=== PATIENT | male | born 1955 | race Caucasian/White ===

== ENCOUNTER 2023-04-12 14:52 | Inpatient (IN) ==
--- NOTE | 2023-04-12 18:08 | DR.CONMALE ---
HPI Time Seen Time Seen by Provider: 04/12/23 18:08 Complaint Chief Complaint Doctors Comments: Patient has been having abdl pain,abdl distention x 2-3 days.Patient states that he has a h/o constipation and has been taking: dulcolax,colace,magnesium citrate,fleets enema,and miralax w/o relief. Patient's states that he has been unable to eat today and has been unable to lie on the stretcher because of the discomfort caused by the constipation. Patient denies:fever,trauma,fall, hematemesis,hematochezia,urinary sxs,weakness. Self Treatment fo Chief Complaint: dulcolax x2, stool softener x2, miralax, mag citrate, fleets enema all taken today w/o success. Pt already taking miralax daily COVID-19 Coronavirus risk:travel/contact w/high risk person: No Has patient experienced Coronavirus symptoms: No Timing Onset of Chief Complaint: 04/10/23 PMH PMH Past Medical History: Yes Past Medical History: Anxiety, Dyslipidemia, GERD, Hypertension and MD Past Surgical History: Yes Surgical History: Angioplasty/Stents and CABG/Valve Surgery Past Surgical History Comment: triple bypass Family History History of Family Medical Conditions: Yes Social History Does any household member use tobacco: No Alcohol Use: None Do you use any recreational Drugs:: No Lives With: Spouse Lives Where: Home Travel Risk Coronavirus risk:travel/contact w/high risk person: No Has patient experienced Coronavirus symptoms: No Infectious screening Have you traveled outside the country in the last 6 months?: No Isolation: Standard ROS Review of Systems Constitutional: No Symptoms Reported Eyes: No Symptoms Reported ENTM: No Symptoms Reported Respiratoy: No Symptoms Reported Cardiovascular: No Symptoms Reported Gastrointestinal/Abdominal: Abdominal Pain (generalized), Constipation and Food Intolerance Genitourinary: No Symptoms Reported Neurological: No Symptoms Reported Musculoskeletal: No Symptoms Reported Integumentary: No Symptoms Reported Hematologic/Lymphatic: No Symptoms Reported Endocrine: No Symptoms Reported Psychiatric: No Symptoms Reported All Other Systems: Reviewed and Negative PE Vital Signs Vital Signs: Temp Pulse Resp BP Pulse Ox O2 Del Method 04/12/23 15:05 98.0 F 97 H 18 110/72 96 Room Air General Limitations: No Limitations General Appearance: Alert and In No Apparent Distress Head Head Exam: Normal Inspection Eyes Eye exam: Normal Appearance ENT ENT Exam: Normal Exam Neck Neck Exam: Normal Inspection Chest Chest Inspection: Normal Inspection Respiratory Respiratory Exam: Normal Lung Sounds Bilat Respiratory Exam: Bilateral: Clear to Auscultation Cardiovascular Cardiovascular Exam: Regular Rate and Normal Rhythm Gastrointestinal Abdominal Exam: Soft, Distention, Rigidity and Hypoactive Bowel Sounds Abdominal Tenderness: Diffuse Rectal Rectal: Deferred Extremities Extremities Exam: Normal Inspection Back Back Exam: Normal Inspection MDM Differential Diagnosis Differential Diagnosis: Bowel obstruction, Cholangitis, Cholecystitis, Inflammatory BD, Ischemic Bowel and Mass COURSE Treatment Treatment: Patient was brought to a monitored and IV access was initiated.He received NS 1liter iv. His wbc is 12.7 with a left shift Neut 88.4 and T,bili is 2.0,AST and ALT is nml. Patient's Abd/pelvis Ct w/ contrast revealed, Rt hepatic lobe lesion and stone in cystic duct(gallbladder neck) nand gallbladder wall thickening suggestive of cholecystitis 22:[address] Fierro who has accepted patient to his service. Dr Fierro request: Give Invanz 1g iv,order MRCP,consult Dr Reyes. Patient has been stable in the ED and will be admitted inpatient. ROR Labs Reviewed Laboratory Results Reviewed?: Yes 04/15/23 04:35 04/15/23 04:35 Laboratory: WBC 12.7 X10^3/uL (3.6-10.0) H 04/12/23 18:43 RBC 6.00 X10^6/uL (4.7-6.0) 04/12/23 18:43 Hgb 16.9 g/dL (13.5-18.0) 04/12/23 18:43 Hct 50.4 % (42.0-54.0) 04/12/23 18:43 MCV 84.0 fL (80.0-100.0) 04/12/23 18:43 MCH 28.2 pg (27.0-34.0) 04/12/23 18:43 MCHC 33.6 g/dL (33.0-35.0) 04/12/23 18:43 RDW 14.3 % (11.6-16.5) 04/12/23 18:43 Plt Count 193 X10^3/uL (150.0-450.0) 04/12/23 18:43 MPV 8.2 fL (7.4-11.0) 04/12/23 18:43 Neut % (Auto) 88.4 % (42.0-75.0) H 04/12/23 18:43 Lymph % (Auto) 3.3 % (21.0-51.0) L 04/12/23 18:43 [place] % (Auto) 7.7 % (0.0-13.0) 04/12/23 18:43 Eos % (Auto) 0.2 % (0.9-2.9) L 04/12/23 18:43 Baso % (Auto) 0.4 % (0.2-1.0) 04/12/23 18:43 Neut # (Auto) 11.2 x10^3/uL (2.2-4.8) H 04/12/23 18:43 Lymph # (Auto) 0.4 X10^3/uL (1.3-2.9) L 04/12/23 18:43 [place] # (Auto) 1.0 x10^3/uL (0.3-0.8) H 04/12/23 18:43 Eos # (Auto) 0.0 x10^3/uL (0.0-0.2) 04/12/23 18:43 Baso # (Auto) 0.0 X10^3/uL (0.0-0.1) 04/12/23 18:43 Absolute Nucleated RBC 0.0 /100WBC 04/12/23 18:43 Sodium 138 mmol/L (136-145) 04/12/23 18:43 Corrected Sodium 139 mmol/L (136-145) 04/12/23 18:43 Potassium 4.4 mmol/L (3.5-5.1) 04/12/23 18:43 Chloride 101 mmol/L (98-107) 04/12/23 18:43 Carbon Dioxide 31.0 mmol/L (21-32) 04/12/23 18:43 BUN 13 mg/dL (7-18) 04/12/23 18:43 Creatinine 1.38 mg/dL (0.70-1.30) H 04/12/23 18:43 Est GFR (MDRD) Af Amer > 60 (>60) 04/12/23 18:43 Est GFR (MDRD) Non-Af 55 (>60) L 04/12/23 18:43 Glucose 157 mg/dL (65-99) H 04/12/23 18:43 Calcium 9.1 mg/dL (8.5-10.1) 04/12/23 18:43 Corrected Calcium TNP 04/12/23 18:43 Total Bilirubin 2.00 mg/dL (0.2-1.0) H 04/12/23 18:43 AST 16 Units/L (15-37) 04/12/23 18:43 ALT 18 Units/L (12-78) 04/12/23 18:43 Alkaline Phosphatase 117 Units/L (46-116) H 04/12/23 18:43 Total Protein 7.2 g/dL (6.4-8.2) 04/12/23 18:43 Albumin 3.5 g/dL (3.4-5.0) 04/12/23 18:43 Globulin 3.7 g/dL (2.5-4.5) 04/12/23 18:43 Albumin/Globulin Ratio 0.9 Ratio (1.1-2.1) L 04/12/23 18:43 Opioid Opioid Risk Tool Age (Leodan box if 16-45): No History of Preadolescent Sexual Abuse: No Total: 0 Total Score Risk Category: Low Risk Copyright: Jonatan ORTIZ predicting aberrant behaviors Discharge Plan Diagnosis Discharge Problem: Acute cholecystitis Discharge Plan Patient Disposition: ADMITTED INPATIENT Condition: Stable
[2023-04-12 18:51] LABS: BASOPHILS % (AUTO) 0.4 % (0.2-1.0); EOSINOPHILS % (AUTO) 0.2 % (0.9-2.9); HEMATOCRIT 50.4 % (42.0-54.0); HEMOGLOBIN 16.9 g/dL (13.5-18.0); LYMPHOCYTES # (AUTO) 0.4 X10^3/uL (1.3-2.9); LYMPHOCYTES % (AUTO) 3.3 % (21.0-51.0); MEAN CORPUSCULAR HEMOGLOBIN 28.2 pg (27.0-34.0); MEAN CORPUSCULAR HGB CONC 33.6 g/dL (33.0-35.0); MEAN PLATELET VOLUME 8.2 fL (7.4-11.0); MONOCYTES % (AUTO) 7.7 % (0.0-13.0); NEUTROPHILS # (AUTO) 11.2 x10^3/uL (2.2-4.8); NEUTROPHILS % (AUTO) 88.4 % (42.0-75.0); PLATELET COUNT 193 X10^3/uL (150.0-450.0); RED CELL DISTRIBUTION WIDTH 14.3 % (11.6-16.5); WHITE BLOOD COUNT 12.7 X10^3/uL (3.6-10.0)
[2023-04-12 19:04] LABS: ALANINE AMINOTRANSFERASE 18 Units/L (12-78); ALBUMIN 3.5 g/dL (3.4-5.0); ALKALINE PHOSPHATASE 117 Units/L (46-116); ASPARTATE AMINO TRANSFERASE 16 Units/L (15-37); BLOOD UREA NITROGEN 13 mg/dL (7-18); CALCIUM 9.1 mg/dL (8.5-10.1); CHLORIDE 101 mmol/L (98-107); COR NA(FOR HYPERGLY) 139 mmol/L (136-145); CREATININE 1.38 mg/dL (0.70-1.30); GLUCOSE 157 mg/dL (65-99); POTASSIUM 4.4 mmol/L (3.5-5.1); SODIUM 138 mmol/L (136-145); TOTAL PROTEIN 7.2 g/dL (6.4-8.2); eGFR NON BLACK RACES 55 (>60)
[2023-04-12] MEDS: OMNIPAQUE 350 mg/mL 100 mL BTL 100 ML ONE (19:20)
--- NOTE | 2023-04-12 20:09 | CT ---
EXAM:ABDCMEN/PELVIS WITH CONHISTORY:CONSTIPATION, RT LOWER ABDOMINAL PAIN ; HX- HTN, LA, AAA SX- STENTS, VALVE, TRIPLE BYPASSCOMPARISON:None.TECHNIQUE:Followin g the intravenous administration of iodinated contrast, spiral CT imaging was performed through the abdomen and pelvis and axial, coronal, and sagittal CT images were generated.FINDINGS:There is minimal basilar atelectasis without effusion. The heart size is normal. There is multivessel coronary atherosclerosis. There are low-density liver lesions compatible with benign cysts. There is a low-density lesion right hepatic lobe which is poorly defined and measures up to 2.7 cm diameter and is of uncertain etiology. Gallbladder wall is questionably thickened. There is a stone in the gallbladder neck or proximal cystic duct this is worrisome for acute cholecystitis. Pancreas is atrophic but otherwise unremarkable. The spleen is normal in size enhancement. The adrenal glands are normal. Kidneys are normal in size and enhancement. There are too small nonobstructing stones in the right kidney. There are simple renal cysts. The stomach is normal. Small bowel loops are grossly normal in appearance without abnormal dilation or wall thickening. The appendix is normal. The large bowel is normal. There is urinary bladder wall thickening. The prostate measures 3.9 cm in diameter. There is [id number] systemic atherosclerosis. There is no worrisome bone marrow lesion.IMPRESSION:1. There is a stone in the cystic duct or gallbladder neck and there appears to be gallbladder wall thickening suggesting acute cholecystitis.2. Nonobstructing right renal stones.3. Non-specific low-density lesion in the right hepatic lobe.4. Nonspecific urinary bladder wall thickening.THIS IS AN ELECTRONICALLY VERIFIED FINAL REPORT04/12/2023 8:06 PM - Electronically signed by Andrés Baugh MD
[2023-04-12] MEDS ORDERED: INVanz INJ 1 GRAM VIAL 1 G in NS 100 ML IV 100 ML IV SCH (23:00)
[2023-04-12] MEDS: INVanz INJ 1 GRAM VIAL 1 G in NS 100 ML IV 100 ML IV SCH (23:21)
[2023-04-12] MEDS: GOLYTELY or GAVILYTE or Equivalent PO SCH (23:22)
[2023-04-13 00:33] VITALS: BMI 26.7
[2023-04-13] MEDS: ZOFRAN INJ 4 MG VIAL IVP PRN (00:52)
[2023-04-13] MEDS: MORPHINE SULFATE INJ 2 MG INJ IVP PRN (00:53)
[2023-04-13] MEDS: NS 1,000 ML IV 1,000 ML IV SCH (00:54)
[2023-04-13 05:23] LABS: BASOPHILS % (AUTO) 0.2 % (0.2-1.0); HEMATOCRIT 48.1 % (42.0-54.0); HEMOGLOBIN 16.2 g/dL (13.5-18.0); LYMPHOCYTES # (AUTO) 0.5 X10^3/uL (1.3-2.9); LYMPHOCYTES % (AUTO) 2.7 % (21.0-51.0); MEAN CORPUSCULAR HEMOGLOBIN 28.6 pg (27.0-34.0); MEAN CORPUSCULAR HGB CONC 33.6 g/dL (33.0-35.0); MEAN PLATELET VOLUME 8.5 fL (7.4-11.0); MONOCYTES # (AUTO) 1.4 x10^3/uL (0.3-0.8); MONOCYTES % (AUTO) 7.9 % (0.0-13.0); NEUTROPHILS # (AUTO) 15.3 x10^3/uL (2.2-4.8); NEUTROPHILS % (AUTO) 89.2 % (42.0-75.0); PLATELET COUNT 215 X10^3/uL (150.0-450.0); RED BLOOD COUNT 5.66 X10^6/uL (4.7-6.0); RED CELL DISTRIBUTION WIDTH 14.3 % (11.6-16.5); WHITE BLOOD COUNT 17.2 X10^3/uL (3.6-10.0)
[2023-04-13 05:34] LABS: ALANINE AMINOTRANSFERASE 21 Units/L (12-78); ALBUMIN 3.3 g/dL (3.4-5.0); ALKALINE PHOSPHATASE 115 Units/L (46-116); ASPARTATE AMINO TRANSFERASE 24 Units/L (15-37); BLOOD UREA NITROGEN 15 mg/dL (7-18); CALCIUM 8.4 mg/dL (8.5-10.1); CARBON DIOXIDE 29.1 mmol/L (21-32); CHLORIDE 98 mmol/L (98-107); COR NA(FOR HYPERGLY) 141 mmol/L (136-145); CREATININE 1.39 mg/dL (0.70-1.30); GLUCOSE 148 mg/dL (65-99); LIPASE 15 Units/L (16-77); POTASSIUM 3.7 mmol/L (3.5-5.1); SODIUM 140 mmol/L (136-145); TOTAL PROTEIN 7.1 g/dL (6.4-8.2); eGFR NON BLACK RACES 54 (>60)
[2023-04-13] MEDS ORDERED: ZANAFLEX PO PRN (05:35)
[2023-04-13] MEDS ORDERED: PHENERGAN TAB 25 MG PO PRN (05:38)
--- NOTE | 2023-04-13 05:48 | EKG ---
Test Reason : htn protocol Blood Pressure : */* mmHG Vent. Rate : 91 BPM Atrial Rate : 91 BPM P-R Int : 176 ms QRS Dur : 72 ms QT Int : 350 ms P-R-T Axes : 22 -30 11 degrees QTc Int : 430 ms Normal sinus rhythm Possible Left atrial enlargement Left axis deviation Minimal voltage criteria for LVH, may be normal variant ( R in aVL ) Inferior infarct , age undetermined Anterolateral infarct , age undetermined Abnormal ECG No previous ECGs available Confirmed by Jaime Hernandez MD ([id number]) on 04/13/2023 7:35:08 AM Referred By: Confirmed By: Jaime Hernandez MD
[2023-04-13] MEDS: CATAPRES TAB 0.1 MG PO ONE (05:57)
[2023-04-13] MEDS: INVanz INJ 1 GRAM VIAL ONE (07:13)
[2023-04-13] MEDS: NS 100 ML IV 100 ML ONE ×2 (07:13→14:58)
[2023-04-13] MEDS ORDERED: CONSULT PHARMACY - POTASSIUM & MAGNESIUM XX SCH (08:00)
[2023-04-13] MEDS: COREG TAB 12.5 MG PO SCH (08:26)
[2023-04-13] MEDS: NORMODYNE TAB 200 MG PO SCH (08:27)
[2023-04-13] MEDS ORDERED: K-DUR TAB 20 MEQ PO ONE (09:00)
[2023-04-13] MEDS: ASPIRIN EC 81 MG PO SCH (09:26)
[2023-04-13] MEDS: VITAMIN D3 125 mcg (5,000 UNITS) PO SCH (09:26)
[2023-04-13] MEDS ORDERED: NS IRRIGATION* 1,000 ML ONE (14:28)
[2023-04-13] MEDS ORDERED: STERILE WATER IRRIGATION IR ONE (14:28)
[2023-04-13] MEDS: LR 1,000 ML IV 1,000 ML IV ONE (14:58)
[2023-04-13] MEDS: ANCEF VIAL 1 GRAM ONE (14:58)
--- NOTE | 2023-04-13 15:01 | MRI ---
EXAM: MRCP HISTORY: GALLSTONES BEST IMAGES POSSIBLE PT WAS IN A LOT OF PAIN AND DONE THE BEST HE COULD HOLDING BREATH ; COMPARISON: CT abdomen and pelvis 04/12/2023 TECHNIQUE: Multiplanar multisequence MRI of the abdomen was obtained without contrast. MRCP protocol was used. FINDINGS: The extrahepatic biliary tree is well seen. No evidence for choledocholithiasis. There is abnormal increased T2 signal around the gallbladder, along the inferior margin of the liver, and in the right upper abdomen near the duodenum. Findings suggest acute cholecystitis. I do not see any filling defects in the gallbladder. The stone which is clearly seen on CT in the ga llbladder neck or cystic duct, is not apparent on the MRI. There are cysts in the liver, left kidney, and right kidney. Small cyst in the pancreatic body measu res 9 mm. Recommend follow-up CT with contrast in 1 year. And there is also a mass in the right lobe of the liver which measures 3.2 cm correlating with the no nspecific low-density lesion seen on CT. This could be benign or malignant. There is no hydronephrosis. No bowel obstruction. Pancreas and adrenal glands are unremarkable. Sp olga is otherwise unremarkable. IMPRESSION: 1. No biliary dilatation or evidence for choledocholithiasis 2. Right upper quadrant edema, mostly around the gallbladder, suggesting acute cholecystitis 3. Small pancreatic cyst; recommend follow-up CT in 1 year 4. Indeterminate mass in the right lobe of the liver (3.2 cm) could be benign or malignant THIS IS AN ELECTRONICALLY VERIFIED FINAL REPORT 04/13/2023 2:58 PM - Electronically signed by Abdirashid Mckeon MD
[2023-04-13] MEDS: AMIDATE INJ 40 MG VIAL ONE (15:08)
[2023-04-13] MEDS: BRIDION ONE (15:08)
[2023-04-13] MEDS: ZOFRAN INJ 4 MG VIAL ONE (15:08)
[2023-04-13] MEDS: OFIRMEV IV 1000 MG VIAL 1,000 MG/100 ML VIAL IV ONE (15:08)
[2023-04-13] MEDS: ZEMURON 100 MG VIAL ONE (15:08)
[2023-04-13] MEDS: XYLOCAINE 2 % (PLAIN) ONE (15:08)
[2023-04-13] MEDS: FENTANYL VIAL INJ 100 mcg ONE ×2 (15:09→15:31)
[2023-04-13] MEDS: PEPCID 20 MG VIAL ONE (15:09)
[2023-04-13] MEDS ORDERED: SUPRANE ONE (15:09)
[2023-04-13] MEDS ORDERED: XYLOCAINE 2 % (PLAIN) ONE (15:09)
[2023-04-13] MEDS: SUPRANE ONE (15:22)
[2023-04-13] MEDS: BACTROBAN TOPICAL OINT ONE (15:28)
[2023-04-13] MEDS: VERSED ONE (15:28)
[2023-04-13] MEDS ORDERED: ZOFRAN INJ 4 MG VIAL IVP PRN (16:43)
[2023-04-13] MEDS ORDERED: BARHEMSYS INJ IVP PRN (16:43)
[2023-04-13] MEDS ORDERED: REGLAN INJ 10 MG VIAL IVP PRN (16:43)
[2023-04-13] MEDS ORDERED: DILAUDID INJ IVP PRN ×2 (16:43→16:55)
[2023-04-13] MEDS ORDERED: BENADRYL INJ 50 MG VIAL IVP PRN (16:43)
[2023-04-13 17:55] LABS: BILIRUBIN,URINE NEGATIVE (NEGATIVE); BLOOD/HEMOGLOBIN,URINE 4+ (NEGATIVE); GLUCOSE, URINE NEGATIVE (NEGATIVE); KETONES,URINE 3+ (NEGATIVE); LEUKOCYTE ESTERASE ,URINE NEGATIVE (NEGATIVE); NITRITES,URINE NEGATIVE (NEGATIVE); PROTEIN,URINE 2+ (NEGATIVE); UROBILINOGEN,URINE NORMAL (NORMAL)
[2023-04-13 17:59] LABS: APPEARANCE,URINE CLEAR (CLEAR); COLOR,URINE DARK YELLOW (YELLOW)
[2023-04-13 18:02] LABS: SQUAMOUS EPITHELIAL CELL,UR RARE /HPF (NEGATIVE)
[2023-04-13 18:03] LABS: BACTERIA,URINE TRACE /HPF (NEGATIVE); FINE GRANULAR CASTS,URINE FEW /LPF (NEGATIVE)
--- NOTE | 2023-04-13 18:35 | DR.H&P ---
H&P History & Physical for Day of: H&P Date: 04/12/23 Chief Complaint Chief Complaint: ABDOMINAL PAIN Allergies Allergies Allergy/AdvReac Type Severity Reaction Status Date / Time Penicillins Allergy Severe Verified 04/12/23 22:59 History of Present Illness History of Present Illness: This is a 67-year-old male who was an ER admission after having new onset abdominal pain few days prior. He denied having nausea and vomiting, but reported lack of bowel movement for several days. He had tried and failed on several enemas, dulcolax, magnesium citrate, miralax. ER work up revealed acute cholecystitis with a thickened gallbladder wall and impacted stone in the cystic duct. Past Medical History Past Medical History: Anxiety, Dyslipidemia, GERD, Hypertension and ID Past Surgical History Surgical History: Angioplasty/Stents and CABG/Valve Surgery Family History Family Medical History: Cancer Social History Does patient currently use any type of tobacco product: No Have you used tobacco products in the last 12 months: No Type of Tobacco Use: None Does any household member use tobacco: No Alcohol Use: None Drug Use: None Medications Home Medications: Home Medications Medication Instructions Recorded Confirmed Type alprazolam 0.5 mg tablet 0.5 mg PO TID 04/12/23 04/12/23 History aspirin 81 mg tablet,delayed 81 mg PO QDAY 04/12/23 04/12/23 History release atorvastatin 40 mg tablet 40 mg PO QHS 04/12/23 04/12/23 History carvedilol 12.5 mg tablet 12.5 mg PO BID 04/12/23 04/12/23 History cholecalciferol (vitamin D3) 125 125 mcg PO QDAY 04/12/23 04/12/23 History mcg (5,000 unit) tablet (Vitamin D3) hydrocodone 10 mg-acetaminophen 1 tab PO TID 04/12/23 04/12/23 History 325 mg tablet hydroxyzine pamoate 25 mg capsule 25 mg PO BID 04/12/23 04/12/23 History labetalol 200 mg tablet 200 mg PO DAILY 04/12/23 04/12/23 History promethazine 25 mg tablet 25 mg PO TID PRN 04/12/23 04/12/23 History tizanidine 2 mg tablet 2 mg PO BID PRN 04/12/23 04/12/23 History zolpidem 12.5 mg tablet,extended 12.5 mg PO QPM 04/12/23 04/12/23 History release,multiphase Labs 04/14/23 05:30 04/14/23 05:30 Labs: 04/13/23 16:15 Gallbladder Fluid Wound Gram Stain - Final Laboratory WBC 17.2 X10^3/uL (3.6-10.0) H 04/13/23 04:43 RBC 5.66 X10^6/uL (4.7-6.0) 04/13/23 04:43 Hgb 16.2 g/dL (13.5-18.0) 04/13/23 04:43 Hct 48.1 % (42.0-54.0) 04/13/23 04:43 MCV 85.0 fL (80.0-100.0) 04/13/23 04:43 MCH 28.6 pg (27.0-34.0) 04/13/23 04:43 MCHC 33.6 g/dL (33.0-35.0) 04/13/23 04:43 RDW 14.3 % (11.6-16.5) 04/13/23 04:43 Plt Count 215 X10^3/uL (150.0-450.0) 04/13/23 04:43 MPV 8.5 fL (7.4-11.0) 04/13/23 04:43 Neut % (Auto) 89.2 % (42.0-75.0) H 04/13/23 04:43 Lymph % (Auto) 2.7 % (21.0-51.0) L 04/13/23 04:43 [place] % (Auto) 7.9 % (0.0-13.0) 04/13/23 04:43 Eos % (Auto) 0.0 % (0.9-2.9) L 04/13/23 04:43 Baso % (Auto) 0.2 % (0.2-1.0) 04/13/23 04:43 Neut # (Auto) 15.3 x10^3/uL (2.2-4.8) H 04/13/23 04:43 Lymph # (Auto) 0.5 X10^3/uL (1.3-2.9) L 04/13/23 04:43 [place] # (Auto) 1.4 x10^3/uL (0.3-0.8) H 04/13/23 04:43 Eos # (Auto) 0.0 x10^3/uL (0.0-0.2) 04/13/23 04:43 Baso # (Auto) 0.0 X10^3/uL (0.0-0.1) 04/13/23 04:43 Absolute Nucleated RBC 0.1 /100WBC 04/13/23 04:43 Sodium 140 mmol/L (136-145) 04/13/23 04:43 Corrected Sodium 141 mmol/L (136-145) 04/13/23 04:43 Potassium 3.7 mmol/L (3.5-5.1) 04/13/23 04:43 Chloride 98 mmol/L (98-107) 04/13/23 04:43 Carbon Dioxide 29.1 mmol/L (21-32) 04/13/23 04:43 BUN 15 mg/dL (7-18) 04/13/23 04:43 Creatinine 1.39 mg/dL (0.70-1.30) H 04/13/23 04:43 Est GFR (MDRD) Af Amer > 60 (>60) 04/13/23 04:43 Est GFR (MDRD) Non-Af 54 (>60) L 04/13/23 04:43 Glucose 148 mg/dL (65-99) H 04/13/23 04:43 Calcium 8.4 mg/dL (8.5-10.1) L 04/13/23 04:43 Corrected Calcium 9.0 mg/dL (8.5-10.1) 04/13/23 04:43 Total Bilirubin 2.20 mg/dL (0.2-1.0) H 04/13/23 04:43 AST 24 Units/L (15-37) 04/13/23 04:43 ALT 21 Units/L (12-78) 04/13/23 04:43 Alkaline Phosphatase 115 Units/L (46-116) 04/13/23 04:43 Total Protein 7.1 g/dL (6.4-8.2) 04/13/23 04:43 Albumin 3.3 g/dL (3.4-5.0) L 04/13/23 04:43 Globulin 3.8 g/dL (2.5-4.5) 04/13/23 04:43 Albumin/Globulin Ratio 0.9 Ratio (1.1-2.1) L 04/13/23 04:43 Lipase 15 Units/L (16-77) L 04/13/23 04:43 Specimen Type Catherized urine 04/13/23 17:24 Urine Color Dark yellow (YELLOW) 04/13/23 17:24 Urine Appearance Clear (CLEAR) 04/13/23 17:24 Urine pH 5.0 (5.0 - 8.0) 04/13/23 17:24 Ur Specific [place] 1.030 (1.000-1.030) 04/13/23 17:24 Urine Protein 2+ (NEGATIVE) 04/13/23 17:24 Urine Glucose (UA) Negative (NEGATIVE) 04/13/23 17:24 Urine Ketones 3+ (NEGATIVE) 04/13/23 17:24 Urine Blood 4+ (NEGATIVE) 04/13/23 17:24 Urine Nitrite Negative (NEGATIVE) 04/13/23 17:24 Urine Bilirubin Negative (NEGATIVE) 04/13/23 17:24 Urine Urobilinogen Normal (NORMAL) 04/13/23 17:24 Ur Leukocyte Esterase Negative (NEGATIVE) 04/13/23 17:24 Urine RBC 3-5 /HPF (0-3) A 04/13/23 17:24 Urine WBC 0-2 /HPF (0-5) 04/13/23 17:24 Ur Squamous Epith Cells Rare /HPF (NEGATIVE) 04/13/23 17:24 Amorphous Sediment 1+ /HPF (NEGATIVE) 04/13/23 17:24 Urine Bacteria Trace /HPF (NEGATIVE) 04/13/23 17:24 Fine Granular Casts Few /LPF (NEGATIVE) 04/13/23 17:24 Urine Mucus Moderate /HPF (NEGATIVE) 04/13/23 17:24 Ur Culture Indicated? No/not indicated 04/13/23 17:24 Review of Systems Constitutional: Weakness Eyes: No Symptoms Reported ENT: No Symptoms Reported Respiratory: No Symptoms Reported Cardiovascular: No Symptoms Reported Gastrointestinal: Nausea, Vomiting and Abdominal Pain Genitourinary: No Symptoms Reported Musculoskeletal: Back Pain Skin: No Symptoms Reported Neurological: No Symptoms Reported Physical Exam Vital Signs: Vital Signs Temperature 98.2 F Pulse Rate [Left Apical] 96 Pulse Rate 88 Pulse Rate 89 Pulse Rate 89 Pulse Rate 92 Pulse Rate 89 Pulse Rate 93 Pulse Rate 93 Pulse Rate 93 Pulse Rate 90 Respiratory Rate 21 Respiratory Rate 20 Respiratory Rate 20 Respiratory Rate 21 Respiratory Rate 19 Respiratory Rate 20 Respiratory Rate 20 Respiratory Rate 18 Respiratory Rate 18 Respiratory Rate 18 Respiratory Rate 18 Blood Pressure [Left Arm] 147/79 Blood Pressure 137/65 Blood Pressure 134/62 Blood Pressure 137/63 Blood Pressure 134/58 Blood Pressure 139/66 Blood Pressure 151/71 Blood Pressure 140/73 Blood Pressure 152/92 O2 Sat by Pulse Oximetry 98 O2 Sat by Pulse Oximetry 98 O2 Sat by Pulse Oximetry 98 O2 Sat by Pulse Oximetry 97 O2 Sat by Pulse Oximetry 97 O2 Sat by Pulse Oximetry 97 O2 Sat by Pulse Oximetry 96 O2 Sat by Pulse Oximetry 95 O2 Sat by Pulse Oximetry 92 Oriented: Normal Eyes: Normal Ear: Normal Nose: Normal Throat: Normal Respiratory: Clear Throughout Cardiovascular: Normal : Normal Auscultation: Bowel Sounds: Normal Palpation: Normal Tenderness: Diffuse ( Full with diffuse tenderness. Slightly tympanic in the epigastrium. Bowel sounds were hypoactive. ) Skin: Normal Musculoskeletal: Normal Psychiatric: Normal Mood Description: Calm Affect: Normal Speech Pattern: Clear
[2023-04-13] MEDS: LIPITOR TAB 40 MG PO SCH (21:34)
[2023-04-13] MEDS: AMBIEN PO PRN (21:34)
[2023-04-13] MEDS: PROTONIX INJ 40 MG VIAL IVP SCH (21:37)
[2023-04-13] MEDS: D5 1/2 NS 1,000 ML 1,000 ML IV SCH (21:47)
[2023-04-13] MEDS: ZOSYN VIAL 3.375 GRAMS 3.375 G in NS 100 ML IV 100 ML IV SCH (23:10)
[2023-04-14] MEDS: VISTARIL PO PRN
[2023-04-14] MEDS: NORCO 10/325 TAB PO PRN (00:04)
[2023-04-14 06:24] LABS: BASOPHILS % (AUTO) 0.2 % (0.2-1.0); EOSINOPHILS % (AUTO) 0.2 % (0.9-2.9); HEMATOCRIT 41.1 % (42.0-54.0); HEMOGLOBIN 13.9 g/dL (13.5-18.0); LYMPHOCYTES # (AUTO) 0.7 X10^3/uL (1.3-2.9); LYMPHOCYTES % (AUTO) 5.7 % (21.0-51.0); MEAN CORPUSCULAR HEMOGLOBIN 28.8 pg (27.0-34.0); MEAN CORPUSCULAR HGB CONC 33.8 g/dL (33.0-35.0); MEAN CORPUSCULAR VOLUME 85.1 fL (80.0-100.0); MEAN PLATELET VOLUME 8.6 fL (7.4-11.0); MONOCYTES # (AUTO) 1.2 x10^3/uL (0.3-0.8); MONOCYTES % (AUTO) 9.8 % (0.0-13.0); NEUTROPHILS # (AUTO) 10.1 x10^3/uL (2.2-4.8); NEUTROPHILS % (AUTO) 84.1 % (42.0-75.0); PLATELET COUNT 165 X10^3/uL (150.0-450.0); RED BLOOD COUNT 4.83 X10^6/uL (4.7-6.0); RED CELL DISTRIBUTION WIDTH 14.1 % (11.6-16.5)
[2023-04-14 06:30] LABS: ALANINE AMINOTRANSFERASE 18 Units/L (12-78); ALBUMIN 2.2 g/dL (3.4-5.0); ALKALINE PHOSPHATASE 78 Units/L (46-116); ASPARTATE AMINO TRANSFERASE 25 Units/L (15-37); BLOOD UREA NITROGEN 21 mg/dL (7-18); CALCIUM 7.6 mg/dL (8.5-10.1); CHLORIDE 103 mmol/L (98-107); COR NA(FOR HYPERGLY) 140 mmol/L (136-145); CREATININE 1.42 mg/dL (0.70-1.30); GLUCOSE 146 mg/dL (65-99); MAGNESIUM 2.2 mg/dL (2.0-2.9); POTASSIUM 3.9 mmol/L (3.5-5.1); SODIUM 139 mmol/L (136-145); TOTAL PROTEIN 5.5 g/dL (6.4-8.2); eGFR NON BLACK RACES 53 (>60)
[2023-04-14] MEDS: ALPRAZOLAM ODT PO PRN (08:28)
--- NOTE | 2023-04-14 09:21 | RAD ---
EXAM: AP chest HISTORY: Preop gallbladder COMPARISON: None FINDINGS: Heart size is upper normal, accentuated by diaphragm elevation and low lung volumes. Minimal atelec tasis is noted at the level of the right diaphragm. There is no definite pneumonia or pleural fluid. IMPRESSION: Low volume lungs which may be related to abdominal distention. Minimal right basal atelectasis. THIS IS AN ELECTRONICALLY VERIFIED FINAL REPORT 04/14/2023 9:18 AM - Electronically signed by Aj Price MD
--- NOTE | 2023-04-14 11:07 | DR.PROGNOT ---
HOSPITAL PROGRESS NOTE Progress Note for Day of: Progress Note Date: 04/14/23 Chief Complaint Chief Complaint: Patient is status post diagnostic laparoscopy, cholecystostomy, lysis of adhesions and drainage.. Patient was found to have acute gangrenous cholecystitis with dense adhesions around the gallbladder and liver edges with distended transverse colon. Patient is doing fairly well today with moderate incisional pain, no nausea or vomiting. GERI drainage is draining dark bile. Good urine output. White count 12,000, hemoglobin 13.9, BUN 21, creatinine 1.4, total bilirubin 1.7, liver function test are normal. Patient is afebrile.. Past Medical Family Social History Allergies: Allergies Penicillins Allergy (Severe, Verified 04/12/23 22:59) Vital Signs Vital Signs: Vital Signs Temperature 98.0 F Temperature 99.3 F Pulse Rate [Left Apical] 81 Pulse Rate [Left Apical] 89 Respiratory Rate 18 Respiratory Rate 20 Respiratory Rate 18 Respiratory Rate 18 Respiratory Rate 18 Respiratory Rate 18 Blood Pressure [Left Arm] 143/69 Blood Pressure [Left Arm] 144/88 O2 Sat by Pulse Oximetry 93 O2 Sat by Pulse Oximetry 95 Physical Exam Oriented: Normal Eyes: Normal Nose: Normal Respiratory: Normal Cardiovascular: Normal GI:Auscultation: Decreased GI: Tenderness: Other (Mild to moderate diffuse tenderness in the right upper quadrant and epigastrium.) Mood Description: Calm and Appropriate Speech Pattern: Clear Laboratory and Diagnostics 04/14/23 05:30 04/14/23 05:30 Labs: 04/13/23 16:15 Gallbladder Fluid Wound Gram Stain - Final 04/13/23 16:15 Gallbladder Fluid Wound Culture - Preliminary Laboratory WBC 12.0 X10^3/uL (3.6-10.0) H 04/14/23 05:30 RBC 4.83 X10^6/uL (4.7-6.0) 04/14/23 05:30 Hgb 13.9 g/dL (13.5-18.0) D 04/14/23 05:30 Hct 41.1 % (42.0-54.0) L 04/14/23 05:30 MCV 85.1 fL (80.0-100.0) 04/14/23 05:30 MCH 28.8 pg (27.0-34.0) 04/14/23 05:30 MCHC 33.8 g/dL (33.0-35.0) 04/14/23 05:30 RDW 14.1 % (11.6-16.5) 04/14/23 05:30 Plt Count 165 X10^3/uL (150.0-450.0) 04/14/23 05:30 MPV 8.6 fL (7.4-11.0) 04/14/23 05:30 Neut % (Auto) 84.1 % (42.0-75.0) H 04/14/23 05:30 Lymph % (Auto) 5.7 % (21.0-51.0) L 04/14/23 05:30 [place] % (Auto) 9.8 % (0.0-13.0) 04/14/23 05:30 Eos % (Auto) 0.2 % (0.9-2.9) L 04/14/23 05:30 Baso % (Auto) 0.2 % (0.2-1.0) 04/14/23 05:30 Neut # (Auto) 10.1 x10^3/uL (2.2-4.8) H 04/14/23 05:30 Lymph # (Auto) 0.7 X10^3/uL (1.3-2.9) L 04/14/23 05:30 [place] # (Auto) 1.2 x10^3/uL (0.3-0.8) H 04/14/23 05:30 Eos # (Auto) 0.0 x10^3/uL (0.0-0.2) 04/14/23 05:30 Baso # (Auto) 0.0 X10^3/uL (0.0-0.1) 04/14/23 05:30 Absolute Nucleated RBC 0.0 /100WBC 04/14/23 05:30 Sodium 139 mmol/L (136-145) 04/14/23 05:30 Corrected Sodium 140 mmol/L (136-145) 04/14/23 05:30 Potassium 3.9 mmol/L (3.5-5.1) 04/14/23 05:30 Chloride 103 mmol/L (98-107) 04/14/23 05:30 Carbon Dioxide 28.0 mmol/L (21-32) 04/14/23 05:30 BUN 21 mg/dL (7-18) H 04/14/23 05:30 Creatinine 1.42 mg/dL (0.70-1.30) H 04/14/23 05:30 Est GFR (MDRD) Af Amer > 60 (>60) 04/14/23 05:30 Est GFR (MDRD) Non-Af 53 (>60) L 04/14/23 05:30 Glucose 146 mg/dL (65-99) H 04/14/23 05:30 Calcium 7.6 mg/dL (8.5-10.1) L 04/14/23 05:30 Corrected Calcium 9.0 mg/dL (8.5-10.1) 04/14/23 05:30 Magnesium 2.2 mg/dL (2.0-2.9) 04/14/23 05:30 Total Bilirubin 1.70 mg/dL (0.2-1.0) H 04/14/23 05:30 AST 25 Units/L (15-37) 04/14/23 05:30 ALT 18 Units/L (12-78) 04/14/23 05:30 Alkaline Phosphatase 78 Units/L (46-116) 04/14/23 05:30 Total Protein 5.5 g/dL (6.4-8.2) L 04/14/23 05:30 Albumin 2.2 g/dL (3.4-5.0) L 04/14/23 05:30 Globulin 3.3 g/dL (2.5-4.5) 04/14/23 05:30 Albumin/Globulin Ratio 0.7 Ratio (1.1-2.1) L 04/14/23 05:30 Lipase 15 Units/L (16-77) L 04/13/23 04:43 Specimen Type Catherized urine 04/13/23 17:24 Urine Color Dark yellow (YELLOW) 04/13/23 17:24 Urine Appearance Clear (CLEAR) 04/13/23 17:24 Urine pH 5.0 (5.0 - 8.0) 04/13/23 17:24 Ur Specific [place] 1.030 (1.000-1.030) 04/13/23 17:24 Urine Protein 2+ (NEGATIVE) 04/13/23 17:24 Urine Glucose (UA) Negative (NEGATIVE) 04/13/23 17:24 Urine Ketones 3+ (NEGATIVE) 04/13/23 17:24 Urine Blood 4+ (NEGATIVE) 04/13/23 17:24 Urine Nitrite Negative (NEGATIVE) 04/13/23 17:24 Urine Bilirubin Negative (NEGATIVE) 04/13/23 17:24 Urine Urobilinogen Normal (NORMAL) 04/13/23 17:24 Ur Leukocyte Esterase Negative (NEGATIVE) 04/13/23 17:24 Urine RBC 3-5 /HPF (0-3) A 04/13/23 17:24 Urine WBC 0-2 /HPF (0-5) 04/13/23 17:24 Ur Squamous Epith Cells Rare /HPF (NEGATIVE) 04/13/23 17:24 Amorphous Sediment 1+ /HPF (NEGATIVE) 04/13/23 17:24 Urine Bacteria Trace /HPF (NEGATIVE) 04/13/23 17:24 Fine Granular Casts Few /LPF (NEGATIVE) 04/13/23 17:24 Urine Mucus Moderate /HPF (NEGATIVE) 04/13/23 17:24 Ur Culture Indicated? No/not indicated 04/13/23 17:24 Assessment and Plan 1: Acute gangrenous calculus cholecystitis. S/p laparoscopy, lysis of adhesions, cholecystostomy and drainage. Same IV antibiotics. Will advance diet to soft low-fat diet. Out of bed. Same IV antibiotics.
--- NOTE | 2023-04-14 17:36 | PCM.PROG ---
Progress Note Progress Note for Day of Date of Exam: 04/13/23 Subjective Subjective: PT IS 67 WM, ER ADMISSION AFTER PRESENTING WITH CO ABDOMINAL PAIN AND N/V. PT HAD CT REVEALING ACUTE CHOLECYSTITIS. PT IS NPO FOR MRCP THIS AM. DR CHAUDHARI IS CONSULTING AND DISCUSSED LAP KAZ FOR LATER THIS MORNING. PT IS CURRENTLY ON IV INVANZ. WE OBTAINED A ROUTINE EKG AND CXR FOR PREOP DUE TO PT'S PMH OF CAD. PT DENIES ANY CHEST PAIN THIS AM OR SOB, BUT CO RIGHT SIDE ABDOMINAL PAIN. PT'S WBC 17.2, CREAT AT 1.39 ON AM LABS. Past Medical Family Social History Allergies: Allergies Penicillins Allergy (Severe, Verified 04/12/23 22:59) Review of Systems ROS: No change since H&P Vital Signs and I&O's Vital Signs: Vital Signs Temperature 97.5 F Temperature 97.9 F Pulse Rate [Left Apical] 75 Pulse Rate [Left Apical] 76 Respiratory Rate 20 Respiratory Rate 18 Respiratory Rate 18 Respiratory Rate 20 Blood Pressure [Left Arm] 148/66 Blood Pressure [Left Arm] 147/68 O2 Sat by Pulse Oximetry 95 O2 Sat by Pulse Oximetry 94 Intake and Output: Intake & Output 04/12/23 04/13/23 04/14/23 04/15/23 11:59 11:59 11:59 11:59 Intake Total 634 / 634 3000 / 3000 1686 / 1686 Output Total 2855 / 2855 860 / 860 Balance 634 / 634 145 / 145 826 / 826 Physical Exam Oriented: Normal Eyes: Normal Ear: Normal Nose: Normal Throat: Normal Respiratory: Normal Cardiovascular: Normal : Normal Auscultation: Bowel Sounds: Normal Tenderness: RUQ, RLQ and Epigastric Skin: Normal Musculoskeletal: Normal Psychiatric: Normal Mood Description: Calm Affect: Normal Speech Pattern: Clear Laboratory and Diagnostics 04/14/23 05:30 04/14/23 05:30 Labs: 04/13/23 16:15 Gallbladder Fluid Wound Gram Stain - Final 04/13/23 16:15 Gallbladder Fluid Wound Culture - Preliminary Laboratory WBC 12.0 X10^3/uL (3.6-10.0) H 04/14/23 05:30 RBC 4.83 X10^6/uL (4.7-6.0) 04/14/23 05:30 Hgb 13.9 g/dL (13.5-18.0) D 04/14/23 05:30 Hct 41.1 % (42.0-54.0) L 04/14/23 05:30 MCV 85.1 fL (80.0-100.0) 04/14/23 05:30 MCH 28.8 pg (27.0-34.0) 04/14/23 05:30 MCHC 33.8 g/dL (33.0-35.0) 04/14/23 05:30 RDW 14.1 % (11.6-16.5) 04/14/23 05:30 Plt Count 165 X10^3/uL (150.0-450.0) 04/14/23 05:30 MPV 8.6 fL (7.4-11.0) 04/14/23 05:30 Neut % (Auto) 84.1 % (42.0-75.0) H 04/14/23 05:30 Lymph % (Auto) 5.7 % (21.0-51.0) L 04/14/23 05:30 [place] % (Auto) 9.8 % (0.0-13.0) 04/14/23 05:30 Eos % (Auto) 0.2 % (0.9-2.9) L 04/14/23 05:30 Baso % (Auto) 0.2 % (0.2-1.0) 04/14/23 05:30 Neut # (Auto) 10.1 x10^3/uL (2.2-4.8) H 04/14/23 05:30 Lymph # (Auto) 0.7 X10^3/uL (1.3-2.9) L 04/14/23 05:30 [place] # (Auto) 1.2 x10^3/uL (0.3-0.8) H 04/14/23 05:30 Eos # (Auto) 0.0 x10^3/uL (0.0-0.2) 04/14/23 05:30 Baso # (Auto) 0.0 X10^3/uL (0.0-0.1) 04/14/23 05:30 Absolute Nucleated RBC 0.0 /100WBC 04/14/23 05:30 Sodium 139 mmol/L (136-145) 04/14/23 05:30 Corrected Sodium 140 mmol/L (136-145) 04/14/23 05:30 Potassium 3.9 mmol/L (3.5-5.1) 04/14/23 05:30 Chloride 103 mmol/L (98-107) 04/14/23 05:30 Carbon Dioxide 28.0 mmol/L (21-32) 04/14/23 05:30 BUN 21 mg/dL (7-18) H 04/14/23 05:30 Creatinine 1.42 mg/dL (0.70-1.30) H 04/14/23 05:30 Est GFR (MDRD) Af Amer > 60 (>60) 04/14/23 05:30 Est GFR (MDRD) Non-Af 53 (>60) L 04/14/23 05:30 Glucose 146 mg/dL (65-99) H 04/14/23 05:30 Calcium 7.6 mg/dL (8.5-10.1) L 04/14/23 05:30 Corrected Calcium 9.0 mg/dL (8.5-10.1) 04/14/23 05:30 Magnesium 2.2 mg/dL (2.0-2.9) 04/14/23 05:30 Total Bilirubin 1.70 mg/dL (0.2-1.0) H 04/14/23 05:30 AST 25 Units/L (15-37) 04/14/23 05:30 ALT 18 Units/L (12-78) 04/14/23 05:30 Alkaline Phosphatase 78 Units/L (46-116) 04/14/23 05:30 Total Protein 5.5 g/dL (6.4-8.2) L 04/14/23 05:30 Albumin 2.2 g/dL (3.4-5.0) L 04/14/23 05:30 Globulin 3.3 g/dL (2.5-4.5) 04/14/23 05:30 Albumin/Globulin Ratio 0.7 Ratio (1.1-2.1) L 04/14/23 05:30 Lipase 15 Units/L (16-77) L 04/13/23 04:43 Specimen Type Catherized urine 04/13/23 17:24 Urine Color Dark yellow (YELLOW) 04/13/23 17:24 Urine Appearance Clear (CLEAR) 04/13/23 17:24 Urine pH 5.0 (5.0 - 8.0) 04/13/23 17:24 Ur Specific [place] 1.030 (1.000-1.030) 04/13/23 17:24 Urine Protein 2+ (NEGATIVE) 04/13/23 17:24 Urine Glucose (UA) Negative (NEGATIVE) 04/13/23 17:24 Urine Ketones 3+ (NEGATIVE) 04/13/23 17:24 Urine Blood 4+ (NEGATIVE) 04/13/23 17:24 Urine Nitrite Negative (NEGATIVE) 04/13/23 17:24 Urine Bilirubin Negative (NEGATIVE) 04/13/23 17:24 Urine Urobilinogen Normal (NORMAL) 04/13/23 17:24 Ur Leukocyte Esterase Negative (NEGATIVE) 04/13/23 17:24 Urine RBC 3-5 /HPF (0-3) A 04/13/23 17:24 Urine WBC 0-2 /HPF (0-5) 04/13/23 17:24 Ur Squamous Epith Cells Rare /HPF (NEGATIVE) 04/13/23 17:24 Amorphous Sediment 1+ /HPF (NEGATIVE) 04/13/23 17:24 Urine Bacteria Trace /HPF (NEGATIVE) 04/13/23 17:24 Fine Granular Casts Few /LPF (NEGATIVE) 04/13/23 17:24 Urine Mucus Moderate /HPF (NEGATIVE) 04/13/23 17:24 Ur Culture Indicated? No/not indicated 04/13/23 17:24 Plan (1) Acute cholecystitis: Status: Acute Narrative Support Text: SURGICAL CONSULT. PT NPO FOR MRCP THIS AM CONTINUE IV ATBX, IV HYDRATION WITH STRICT I&OS CXR AND EKG OBTAINED FOR PREOP PRN PAIN CONTROL, REPEAT AM LABS (2) Constipation: Status: Acute Qualifiers: Constipation type: unspecified constipation type Qualified Code(s): K59.00 - Constipation, unspecified (3) Hypertension: Status: Acute (4) CAD (coronary artery disease): Status: Acute
--- NOTE | 2023-04-14 17:41 | PCM.PROG ---
Progress Note Progress Note for Day of Date of Exam: 04/14/23 Subjective Subjective: PT IS 67 WM, ER ADMISSION AFTER PRESENTING WITH CO ABDOMINAL PAIN AND N/V. PT HAD CT REVEALING ACUTE CHOLECYSTITIS. PT IS ONE DAY POST OP LAB KAZ PER DR CHAUDHARI. PT IS ON IV INVANZ SINCE ADMISSION. WBC AT 12K THIS AM. PT HAS GERI DRAIN IN PLACE AND DR CHAUDHARI DISCUSSED DISCHARGING PT HOME WITH DRAIN POSSIBLY TOMORROW. PT HAD BUN 21, CREAT 1.42, WHICH HE REPORTS HAS BEEN HIS BASELINE SINCE HIS [place]PASS [place]. PT DENIES ANY N/V THIS AM. BP 146/66. PT ENCOURAGED TO USE ISO. PT HAS BEEN AFEBRILE FOR LAST 12 HOURS Past Medical Family Social History Allergies: Allergies Penicillins Allergy (Severe, Verified 04/12/23 22:59) Review of Systems ROS: No change since H&P Vital Signs and I&O's Vital Signs: Vital Signs Temperature 97.5 F Temperature 97.9 F Pulse Rate [Left Apical] 75 Pulse Rate [Left Apical] 76 Respiratory Rate 20 Respiratory Rate 18 Respiratory Rate 18 Respiratory Rate 20 Blood Pressure [Left Arm] 148/66 Blood Pressure [Left Arm] 147/68 O2 Sat by Pulse Oximetry 95 O2 Sat by Pulse Oximetry 94 Intake and Output: Intake & Output 04/12/23 04/13/23 04/14/23 04/15/23 11:59 11:59 11:59 11:59 Intake Total 634 / 634 3000 / 3000 1686 / 1686 Output Total 2855 / 2855 860 / 860 Balance 634 / 634 145 / 145 826 / 826 Physical Exam Oriented: Normal Eyes: Normal Ear: Normal Nose: Normal Throat: Normal Respiratory: Normal Cardiovascular: Normal : Normal Auscultation: Bowel Sounds: Normal Tenderness: RUQ, RLQ and Epigastric Skin: Normal and Wound (LAP KAZ INCISIONS, CLEAR DRY INTACT DRESSING ) Musculoskeletal: Normal Psychiatric: Normal Mood Description: Calm Affect: Normal Speech Pattern: Clear Laboratory and Diagnostics 04/14/23 05:30 04/14/23 05:30 Labs: 04/13/23 16:15 Gallbladder Fluid Wound Gram Stain - Final 04/13/23 16:15 Gallbladder Fluid Wound Culture - Preliminary Laboratory WBC 12.0 X10^3/uL (3.6-10.0) H 04/14/23 05:30 RBC 4.83 X10^6/uL (4.7-6.0) 04/14/23 05:30 Hgb 13.9 g/dL (13.5-18.0) D 04/14/23 05:30 Hct 41.1 % (42.0-54.0) L 04/14/23 05:30 MCV 85.1 fL (80.0-100.0) 04/14/23 05:30 MCH 28.8 pg (27.0-34.0) 04/14/23 05:30 MCHC 33.8 g/dL (33.0-35.0) 04/14/23 05:30 RDW 14.1 % (11.6-16.5) 04/14/23 05:30 Plt Count 165 X10^3/uL (150.0-450.0) 04/14/23 05:30 MPV 8.6 fL (7.4-11.0) 04/14/23 05:30 Neut % (Auto) 84.1 % (42.0-75.0) H 04/14/23 05:30 Lymph % (Auto) 5.7 % (21.0-51.0) L 04/14/23 05:30 [place] % (Auto) 9.8 % (0.0-13.0) 04/14/23 05:30 Eos % (Auto) 0.2 % (0.9-2.9) L 04/14/23 05:30 Baso % (Auto) 0.2 % (0.2-1.0) 04/14/23 05:30 Neut # (Auto) 10.1 x10^3/uL (2.2-4.8) H 04/14/23 05:30 Lymph # (Auto) 0.7 X10^3/uL (1.3-2.9) L 04/14/23 05:30 [place] # (Auto) 1.2 x10^3/uL (0.3-0.8) H 04/14/23 05:30 Eos # (Auto) 0.0 x10^3/uL (0.0-0.2) 04/14/23 05:30 Baso # (Auto) 0.0 X10^3/uL (0.0-0.1) 04/14/23 05:30 Absolute Nucleated RBC 0.0 /100WBC 04/14/23 05:30 Sodium 139 mmol/L (136-145) 04/14/23 05:30 Corrected Sodium 140 mmol/L (136-145) 04/14/23 05:30 Potassium 3.9 mmol/L (3.5-5.1) 04/14/23 05:30 Chloride 103 mmol/L (98-107) 04/14/23 05:30 Carbon Dioxide 28.0 mmol/L (21-32) 04/14/23 05:30 BUN 21 mg/dL (7-18) H 04/14/23 05:30 Creatinine 1.42 mg/dL (0.70-1.30) H 04/14/23 05:30 Est GFR (MDRD) Af Amer > 60 (>60) 04/14/23 05:30 Est GFR (MDRD) Non-Af 53 (>60) L 04/14/23 05:30 Glucose 146 mg/dL (65-99) H 04/14/23 05:30 Calcium 7.6 mg/dL (8.5-10.1) L 04/14/23 05:30 Corrected Calcium 9.0 mg/dL (8.5-10.1) 04/14/23 05:30 Magnesium 2.2 mg/dL (2.0-2.9) 04/14/23 05:30 Total Bilirubin 1.70 mg/dL (0.2-1.0) H 04/14/23 05:30 AST 25 Units/L (15-37) 04/14/23 05:30 ALT 18 Units/L (12-78) 04/14/23 05:30 Alkaline Phosphatase 78 Units/L (46-116) 04/14/23 05:30 Total Protein 5.5 g/dL (6.4-8.2) L 04/14/23 05:30 Albumin 2.2 g/dL (3.4-5.0) L 04/14/23 05:30 Globulin 3.3 g/dL (2.5-4.5) 04/14/23 05:30 Albumin/Globulin Ratio 0.7 Ratio (1.1-2.1) L 04/14/23 05:30 Lipase 15 Units/L (16-77) L 04/13/23 04:43 Specimen Type Catherized urine 04/13/23 17:24 Urine Color Dark yellow (YELLOW) 04/13/23 17:24 Urine Appearance Clear (CLEAR) 04/13/23 17:24 Urine pH 5.0 (5.0 - 8.0) 04/13/23 17:24 Ur Specific [place] 1.030 (1.000-1.030) 04/13/23 17:24 Urine Protein 2+ (NEGATIVE) 04/13/23 17:24 Urine Glucose (UA) Negative (NEGATIVE) 04/13/23 17:24 Urine Ketones 3+ (NEGATIVE) 04/13/23 17:24 Urine Blood 4+ (NEGATIVE) 04/13/23 17:24 Urine Nitrite Negative (NEGATIVE) 04/13/23 17:24 Urine Bilirubin Negative (NEGATIVE) 04/13/23 17:24 Urine Urobilinogen Normal (NORMAL) 04/13/23 17:24 Ur Leukocyte Esterase Negative (NEGATIVE) 04/13/23 17:24 Urine RBC 3-5 /HPF (0-3) A 04/13/23 17:24 Urine WBC 0-2 /HPF (0-5) 04/13/23 17:24 Ur Squamous Epith Cells Rare /HPF (NEGATIVE) 04/13/23 17:24 Amorphous Sediment 1+ /HPF (NEGATIVE) 04/13/23 17:24 Urine Bacteria Trace /HPF (NEGATIVE) 04/13/23 17:24 Fine Granular Casts Few /LPF (NEGATIVE) 04/13/23 17:24 Urine Mucus Moderate /HPF (NEGATIVE) 04/13/23 17:24 Ur Culture Indicated? No/not indicated 04/13/23 17:24 Plan (1) Acute cholecystitis: Status: Acute Narrative Support Text: S/P LAP KAZ GENTLE IV HYDRATION WILL CONTINUE IV INVANZ AM LABS AND CHEST XRAY BP CONTROL, MAY RESUME HOME MEDICATIONS FOR CHRONIC DISEASE MANAGEMENT (2) Constipation: Status: Acute Qualifiers: Constipation type: unspecified constipation type Qualified Code(s): K59.00 - Constipation, unspecified (3) Hypertension: Status: Acute (4) CAD (coronary artery disease): Status: Acute
[2023-04-14] MEDS ORDERED: COREG TAB 12.5 MG PO SCH (21:00)
[2023-04-15 04:45] VITALS: PULSE 78
[2023-04-15 05:32] LABS: BASOPHILS % (AUTO) 0.3 % (0.2-1.0); EOSINOPHILS # (AUTO) 0.2 x10^3/uL (0.0-0.2); EOSINOPHILS % (AUTO) 2.6 % (0.9-2.9); HEMATOCRIT 38.8 % (42.0-54.0); HEMOGLOBIN 13.1 g/dL (13.5-18.0); LYMPHOCYTES # (AUTO) 0.6 X10^3/uL (1.3-2.9); LYMPHOCYTES % (AUTO) 7.8 % (21.0-51.0); MEAN CORPUSCULAR HEMOGLOBIN 28.8 pg (27.0-34.0); MEAN CORPUSCULAR HGB CONC 33.8 g/dL (33.0-35.0); MEAN CORPUSCULAR VOLUME 85.2 fL (80.0-100.0); MEAN PLATELET VOLUME 8.3 fL (7.4-11.0); MONOCYTES # (AUTO) 0.8 x10^3/uL (0.3-0.8); MONOCYTES % (AUTO) 10.8 % (0.0-13.0); NEUTROPHILS # (AUTO) 5.7 x10^3/uL (2.2-4.8); NEUTROPHILS % (AUTO) 78.5 % (42.0-75.0); PLATELET COUNT 190 X10^3/uL (150.0-450.0); RED BLOOD COUNT 4.55 X10^6/uL (4.7-6.0); RED CELL DISTRIBUTION WIDTH 14.2 % (11.6-16.5); WHITE BLOOD COUNT 7.2 X10^3/uL (3.6-10.0)
[2023-04-15 05:54] LABS: ALANINE AMINOTRANSFERASE 19 Units/L (12-78); ALBUMIN 2.1 g/dL (3.4-5.0); ALKALINE PHOSPHATASE 71 Units/L (46-116); ASPARTATE AMINO TRANSFERASE 23 Units/L (15-37); BLOOD UREA NITROGEN 16 mg/dL (7-18); CALCIUM 7.9 mg/dL (8.5-10.1); CARBON DIOXIDE 29.4 mmol/L (21-32); CHLORIDE 105 mmol/L (98-107); COR CA(FOR HYPOALB) 9.4 mg/dL (8.5-10.1); CREATININE 1.39 mg/dL (0.70-1.30); GLUCOSE 109 mg/dL (65-99); POTASSIUM 3.7 mmol/L (3.5-5.1); SODIUM 140 mmol/L (136-145); TOTAL PROTEIN 5.5 g/dL (6.4-8.2); eGFR NON BLACK RACES 54 (>60)
--- NOTE | 2023-04-15 06:13 | RAD ---
EXAM:CHEST, PA/LAT ADULTHISTORY:POST OP-KAZ; HTN, [place], GERD SX: ANGIO/STENTS, CABG/VALVE, TRIPLE BYPASSCOMPARISON:04/13/2023FINDINGS:The cardiomediastinal silhouette is widened but stable. Similar post sternotomy changes.No acute airspace disease. No pneumothorax or effusion.No acute osseous abnormality.IMPRESSION:No acute cardiopulmonary disease.THIS IS AN ELECTRONICALLY VERIFIED FINAL REPORT04/15/2023 6:10 AM - Electronically signed by Yogesh Wang MD
[2023-04-15] MEDS ORDERED: CONSULT PHARMACY - POTASSIUM & MAGNESIUM XX SCH (07:00)
--- NOTE | 2023-04-15 08:28 | DR.PROGNOT ---
HOSPITAL PROGRESS NOTE Progress Note for Day of: Progress Note Date: 04/15/23 Chief Complaint Chief Complaint: Patient is status post diagnostic laparoscopy, cholecystostomy, lysis of adhesions and drainage.. Patient was found to have acute gangrenous cholecystitis with dense adhesions around the gallbladder and liver edges with distended transverse colon. Doing much better today, no abdominal pain and tolerating diet well. Patient had normal bowel movement, no rectal bleeding. Drainage from the GERI is getting clear. Liver function test and bilirubin are normal now, creatinine is slightly elevated with normal BUN. Afebrile.. Past Medical Family Social History Allergies: Allergies Penicillins Allergy (Severe, Verified 04/12/23 22:59) Review Of Systems ROS: No change since H&P Vital Signs Vital Signs: Vital Signs Temperature 98.4 F Pulse Rate [Left Apical] 78 Respiratory Rate 18 Respiratory Rate 18 Respiratory Rate 18 Blood Pressure [Left Arm] 161/74 O2 Sat by Pulse Oximetry 94 Physical Exam Oriented: Normal Eyes: Normal Ear: Normal Nose: Normal Throat: Normal Respiratory: Normal Cardiovascular: Normal : Normal GI:Auscultation: Normal GI:Palpation: Normal GI: Tenderness: RUQ, RLQ and Epigastric Skin: Normal and Wound (LAP KAZ INCISIONS, CLEAR DRY INTACT DRESSING ) Musculoskeletal: Normal Psychiatric: Normal Mood Description: Calm Affect: Normal Speech Pattern: Clear Laboratory and Diagnostics 04/15/23 04:35 04/15/23 04:35 Labs: 04/13/23 16:15 Gallbladder Fluid Wound Gram Stain - Final 04/13/23 16:15 Gallbladder Fluid Wound Culture - Preliminary Laboratory WBC 7.2 X10^3/uL (3.6-10.0) 04/15/23 04:35 RBC 4.55 X10^6/uL (4.7-6.0) L 04/15/23 04:35 Hgb 13.1 g/dL (13.5-18.0) L 04/15/23 04:35 Hct 38.8 % (42.0-54.0) L 04/15/23 04:35 MCV 85.2 fL (80.0-100.0) 04/15/23 04:35 MCH 28.8 pg (27.0-34.0) 04/15/23 04:35 MCHC 33.8 g/dL (33.0-35.0) 04/15/23 04:35 RDW 14.2 % (11.6-16.5) 04/15/23 04:35 Plt Count 190 X10^3/uL (150.0-450.0) 04/15/23 04:35 MPV 8.3 fL (7.4-11.0) 04/15/23 04:35 Neut % (Auto) 78.5 % (42.0-75.0) H 04/15/23 04:35 Lymph % (Auto) 7.8 % (21.0-51.0) L 04/15/23 04:35 [place] % (Auto) 10.8 % (0.0-13.0) 04/15/23 04:35 Eos % (Auto) 2.6 % (0.9-2.9) 04/15/23 04:35 Baso % (Auto) 0.3 % (0.2-1.0) 04/15/23 04:35 Neut # (Auto) 5.7 x10^3/uL (2.2-4.8) H 04/15/23 04:35 Lymph # (Auto) 0.6 X10^3/uL (1.3-2.9) L 04/15/23 04:35 [place] # (Auto) 0.8 x10^3/uL (0.3-0.8) 04/15/23 04:35 Eos # (Auto) 0.2 x10^3/uL (0.0-0.2) 04/15/23 04:35 Baso # (Auto) 0.0 X10^3/uL (0.0-0.1) 04/15/23 04:35 Absolute Nucleated RBC 0.0 /100WBC 04/15/23 04:35 Sodium 140 mmol/L (136-145) 04/15/23 04:35 Corrected Sodium TNP 04/15/23 04:35 Potassium 3.7 mmol/L (3.5-5.1) 04/15/23 04:35 Chloride 105 mmol/L (98-107) 04/15/23 04:35 Carbon Dioxide 29.4 mmol/L (21-32) 04/15/23 04:35 BUN 16 mg/dL (7-18) 04/15/23 04:35 Creatinine 1.39 mg/dL (0.70-1.30) H 04/15/23 04:35 Est GFR (MDRD) Af Amer > 60 (>60) 04/15/23 04:35 Est GFR (MDRD) Non-Af 54 (>60) L 04/15/23 04:35 Glucose 109 mg/dL (65-99) H 04/15/23 04:35 Calcium 7.9 mg/dL (8.5-10.1) L 04/15/23 04:35 Corrected Calcium 9.4 mg/dL (8.5-10.1) 04/15/23 04:35 Magnesium 2.2 mg/dL (2.0-2.9) 04/14/23 05:30 Total Bilirubin 1.00 mg/dL (0.2-1.0) 04/15/23 04:35 AST 23 Units/L (15-37) 04/15/23 04:35 ALT 19 Units/L (12-78) 04/15/23 04:35 Alkaline Phosphatase 71 Units/L (46-116) 04/15/23 04:35 Total Protein 5.5 g/dL (6.4-8.2) L 04/15/23 04:35 Albumin 2.1 g/dL (3.4-5.0) L 04/15/23 04:35 Globulin 3.4 g/dL (2.5-4.5) 04/15/23 04:35 Albumin/Globulin Ratio 0.6 Ratio (1.1-2.1) L 04/15/23 04:35 Lipase 15 Units/L (16-77) L 04/13/23 04:43 Specimen Type Catherized urine 04/13/23 17:24 Urine Color Dark yellow (YELLOW) 04/13/23 17:24 Urine Appearance Clear (CLEAR) 04/13/23 17:24 Urine pH 5.0 (5.0 - 8.0) 04/13/23 17:24 Ur Specific [place] 1.030 (1.000-1.030) 04/13/23 17:24 Urine Protein 2+ (NEGATIVE) 04/13/23 17:24 Urine Glucose (UA) Negative (NEGATIVE) 04/13/23 17:24 Urine Ketones 3+ (NEGATIVE) 04/13/23 17:24 Urine Blood 4+ (NEGATIVE) 04/13/23 17:24 Urine Nitrite Negative (NEGATIVE) 04/13/23 17:24 Urine Bilirubin Negative (NEGATIVE) 04/13/23 17:24 Urine Urobilinogen Normal (NORMAL) 04/13/23 17:24 Ur Leukocyte Esterase Negative (NEGATIVE) 04/13/23 17:24 Urine RBC 3-5 /HPF (0-3) A 04/13/23 17:24 Urine WBC 0-2 /HPF (0-5) 04/13/23 17:24 Ur Squamous Epith Cells Rare /HPF (NEGATIVE) 04/13/23 17:24 Amorphous Sediment 1+ /HPF (NEGATIVE) 04/13/23 17:24 Urine Bacteria Trace /HPF (NEGATIVE) 04/13/23 17:24 Fine Granular Casts Few /LPF (NEGATIVE) 04/13/23 17:24 Urine Mucus Moderate /HPF (NEGATIVE) 04/13/23 17:24 Ur Culture Indicated? No/not indicated 04/13/23 17:24 Assessment and Plan 1: Acute gangrenous calculus cholecystitis. S/p laparoscopy, lysis of adhesions, cholecystostomy and drainage. Same IV antibiotics. on soft diet low-fat diet. Out of bed. Patient could be discharged today and keep him on Cipro 500 mg twice a day. Will follow the patient early next week meanwhile we will keep the GERI drainage in place.
[2023-04-15] MEDS: K-DUR TAB 20 MEQ PO SCH (08:30)
[2023-04-15 09:44] VITALS: RESP 20
[2023-04-15 09:54] VITALS: BP 153/67; TEMP 98.2; O2SAT 93
--- NOTE | 2023-04-16 13:10 | PCM.DCPLAN ---
DISCHARGE SUMMARY Admission Date Date of Admission: 04/12/23 Discharge Date Discharge Date: 04/15/23 Admission Diagnoses (1) Acute cholecystitis: Status: Acute (2) Constipation: Status: Acute (3) Hypertension: Status: Acute (4) CAD (coronary artery disease): Status: Acute Discharge Diagnoses Discharge Diagnosis: Resolved cholecystitis, constipation- same as admission Discharge Medications Discharge Medications: Home Medication List alprazolam 0.5 mg tablet 0.5 mg PO TID 04/12/23 [History] aspirin 81 mg tablet,delayed release 81 mg PO QDAY 04/12/23 [History] atorvastatin 40 mg tablet 40 mg PO QHS 04/12/23 [History] carvedilol 12.5 mg tablet 12.5 mg PO BID 04/12/23 [History] cholecalciferol (vitamin D3) 125 mcg (5,000 unit) tablet (Vitamin D3) 125 mcg PO QDAY 04/12/23 [History] hydrocodone 10 mg-acetaminophen 325 mg tablet 1 tab PO TID 04/12/23 [History] hydroxyzine pamoate 25 mg capsule 25 mg PO BID 04/12/23 [History] labetalol 200 mg tablet 200 mg PO DAILY 04/12/23 [History] promethazine 25 mg tablet 25 mg PO TID PRN 04/12/23 [History] tizanidine 2 mg tablet 2 mg PO BID PRN 04/12/23 [History] zolpidem 12.5 mg tablet,extended release,multiphase 12.5 mg PO QPM 04/12/23 [History] ciprofloxacin HCl 500 mg tablet 500 mg PO BID #20 tabs 04/15/23 [Rx] Prescriptions: ciprofloxacin HCl [facility] Course Latest Lab Results: Laboratory Last Values WBC 7.2 X10^3/uL (3.6-10.0) 04/15/23 04:35 RBC 4.55 X10^6/uL (4.7-6.0) L 04/15/23 04:35 Hgb 13.1 g/dL (13.5-18.0) L 04/15/23 04:35 Hct 38.8 % (42.0-54.0) L 04/15/23 04:35 MCV 85.2 fL (80.0-100.0) 04/15/23 04:35 MCH 28.8 pg (27.0-34.0) 04/15/23 04:35 MCHC 33.8 g/dL (33.0-35.0) 04/15/23 04:35 RDW 14.2 % (11.6-16.5) 04/15/23 04:35 Plt Count 190 X10^3/uL (150.0-450.0) 04/15/23 04:35 MPV 8.3 fL (7.4-11.0) 04/15/23 04:35 Neut % (Auto) 78.5 % (42.0-75.0) H 04/15/23 04:35 Lymph % (Auto) 7.8 % (21.0-51.0) L 04/15/23 04:35 [place] % (Auto) 10.8 % (0.0-13.0) 04/15/23 04:35 Eos % (Auto) 2.6 % (0.9-2.9) 04/15/23 04:35 Baso % (Auto) 0.3 % (0.2-1.0) 04/15/23 04:35 Neut # (Auto) 5.7 x10^3/uL (2.2-4.8) H 04/15/23 04:35 Lymph # (Auto) 0.6 X10^3/uL (1.3-2.9) L 04/15/23 04:35 [place] # (Auto) 0.8 x10^3/uL (0.3-0.8) 04/15/23 04:35 Eos # (Auto) 0.2 x10^3/uL (0.0-0.2) 04/15/23 04:35 Baso # (Auto) 0.0 X10^3/uL (0.0-0.1) 04/15/23 04:35 Absolute Nucleated RBC 0.0 /100WBC 04/15/23 04:35 Sodium 140 mmol/L (136-145) 04/15/23 04:35 Corrected Sodium TNP 04/15/23 04:35 Potassium 3.7 mmol/L (3.5-5.1) 04/15/23 04:35 Chloride 105 mmol/L (98-107) 04/15/23 04:35 Carbon Dioxide 29.4 mmol/L (21-32) 04/15/23 04:35 BUN 16 mg/dL (7-18) 04/15/23 04:35 Creatinine 1.39 mg/dL (0.70-1.30) H 04/15/23 04:35 Est GFR (MDRD) Af Amer > 60 (>60) 04/15/23 04:35 Est GFR (MDRD) Non-Af 54 (>60) L 04/15/23 04:35 Glucose 109 mg/dL (65-99) H 04/15/23 04:35 Calcium 7.9 mg/dL (8.5-10.1) L 04/15/23 04:35 Corrected Calcium 9.4 mg/dL (8.5-10.1) 04/15/23 04:35 Magnesium 2.2 mg/dL (2.0-2.9) 04/14/23 05:30 Total Bilirubin 1.00 mg/dL (0.2-1.0) 04/15/23 04:35 AST 23 Units/L (15-37) 04/15/23 04:35 ALT 19 Units/L (12-78) 04/15/23 04:35 Alkaline Phosphatase 71 Units/L (46-116) 04/15/23 04:35 Total Protein 5.5 g/dL (6.4-8.2) L 04/15/23 04:35 Albumin 2.1 g/dL (3.4-5.0) L 04/15/23 04:35 Globulin 3.4 g/dL (2.5-4.5) 04/15/23 04:35 Albumin/Globulin Ratio 0.6 Ratio (1.1-2.1) L 04/15/23 04:35 Lipase 15 Units/L (16-77) L 04/13/23 04:43 Specimen Type Catherized urine 04/13/23 17:24 Urine Color Dark yellow (YELLOW) 04/13/23 17:24 Urine Appearance Clear (CLEAR) 04/13/23 17:24 Urine pH 5.0 (5.0 - 8.0) 04/13/23 17:24 Ur Specific [place] 1.030 (1.000-1.030) 04/13/23 17:24 Urine Protein 2+ (NEGATIVE) 04/13/23 17:24 Urine Glucose (UA) Negative (NEGATIVE) 04/13/23 17:24 Urine Ketones 3+ (NEGATIVE) 04/13/23 17:24 Urine Blood 4+ (NEGATIVE) 04/13/23 17:24 Urine Nitrite Negative (NEGATIVE) 04/13/23 17:24 Urine Bilirubin Negative (NEGATIVE) 04/13/23 17:24 Urine Urobilinogen Normal (NORMAL) 04/13/23 17:24 Ur Leukocyte Esterase Negative (NEGATIVE) 04/13/23 17:24 Urine RBC 3-5 /HPF (0-3) A 04/13/23 17:24 Urine WBC 0-2 /HPF (0-5) 04/13/23 17:24 Ur Squamous Epith Cells Rare /HPF (NEGATIVE) 04/13/23 17:24 Amorphous Sediment 1+ /HPF (NEGATIVE) 04/13/23 17:24 Urine Bacteria Trace /HPF (NEGATIVE) 04/13/23 17:24 Fine Granular Casts Few /LPF (NEGATIVE) 04/13/23 17:24 Urine Mucus Moderate /HPF (NEGATIVE) 04/13/23 17:24 Ur Culture Indicated? No/not indicated 04/13/23 17:24 Hospital Course: Patient is a 67 year old white male, ER admission after presenting with complaints of abdominal pain and nausea/vomiting. Er labs: wbc 12.7, hgb 16.9, bun 13/creatinine 1.38, bilirubin 2.0. Patient had CT revealing acute cholecystitis. He has a past medical history of CAD, Htn. He was admitted for further evaluation and treatment. Patient had a MRCP that showed no biliary dilation or evidence of choledocholithiasis, right upper quadrant edema, mostly around the gallbladder, suggesting acute cholecystitis, small pancreatic cyst, indeterminate mass in the right lobe of the liver. 04/13/23 labs: wbc 17.2, hgb 16.2, bun 15/creatinine 1.39, [address] Moya was consulted and patient was prepped for diagnostic laparoscopy, cholecystostomy, lysis of adhesions and drainage, which was performed on the afternoon of 04/13/23. Surgical findings were acute gangrenous cholecystitis with dense adhesions around the gallbladder and liver edges with distended transverse colon. He has a post surgical GERI drain in place and has been on IV antibiotics since admission. 04/14/23 labs: wbc 12.0, hgb 13.9, bun 21, creatinine 1.42, bilirubin 1.7. Patient did well po-op and states that he is feeling much better, denying abdominal pain, nausea, vomiting. 04/15/23 labs: wbc 7.2, hgb 13.1,bun 16/creatinine 1.39, bilirubin 1.0. Morning chest xray showed no acute cardiopulmonary disease. He had a normal bowel movement, no rectal bleeding reported. Patient stated that he is feeling well. He continued to deny abdominal pain, nausea, vomiting. He remained afebrile. AM Vitals: 153/67-78-20-98.2-93% room air. Dr. Reyes assessed patient and recommended discharge home with GERI drain and on po abx. We will allow patient to discharge home. He will need to follow up with Dr. Moya. He is scheduled for follow up with him on 04/21/23 at 11AM. He will also need to follow up with his primary care provider within 3 days of discharge. Please see discharge plan for lsit of discharge medications and modifications that we made, electronic medical record for diagnostic tests and labs. The patient was instructed to return to the ER if condition changed or worsened unexpectedly.
== END 2023-04-15 11:20 | disposition home or self-care (01) | DRG 418 ==
LOC: MED/SURG 14:52 → ER 14:52 → OBSVTOIN 22:14 → MED/SURG 22:55
PROVIDERS: ADMIT Internal Medicine; ATTEND Internal Medicine
DX: E78.5 Hyperlipidemia, unspecified; R11.2 Nausea with vomiting, unspecified; K82.8 Other specified diseases of gallbladder; K80.67 Calculus of gallbladder and bile duct with acute and chronic cholecystitis with obstruction; K21.9 Gastro-esophageal reflux disease without esophagitis; I25.10 Atherosclerotic heart disease of native coronary artery without angina pectoris; I10 Essential (primary) hypertension; R16.0 Hepatomegaly, not elsewhere classified; R94.31 Abnormal electrocardiogram [ECG] [EKG]; R10.84 Generalized abdominal pain; K59.09 Other constipation; K86.2 Cyst of pancreas